=== PATIENT | male | born 1945 | race Caucasian/White ===

== ENCOUNTER → 2016-04-03 | Outpatient (CLI) | payer MEDICARE | LOC: RAD 07:26 | PROVIDERS: ATTEND Internal Medicine | DX: M47.12 Other spondylosis with myelopathy, cervical region (principal); M50.31 Other cervical disc degeneration, high cervical region | CPT/HCPCS: 72141 ==

== ENCOUNTER → 2016-05-21 | Outpatient (CLI) | payer MEDICARE ==
[~2016-05-21] MED LIST: ALBU8.5H4 IH; AML2.5T PO; AMLO5TAB4 PO; ASPI81TA55 PO; BISO1TAB3 PO; BISOPROLOL; CEPH-507 PO; GLMP2T PO; LATA2.5D5 OP; LOSA100T3 PO; METF500T4 PO; MPR22TI TOP; SIMV20TA PO; TAMS0.4C2 PO; TEST100V3
[2016-05-21 11:49] VITALS: BP 126/85
--- NOTE | 2016-05-21 11:49 | Urgent Care T Sheet Gen (E) ---
Intake General Temperature (Fahrenheit): 98.6 Pulse: 75 Blood Pressure Systolic: 126 Blood Pressure Diastolic: 85 Respirations: 18 SPO2: 97 Description of Symptoms patient presents with a probable infection to the L chin/lower lip area. Started as an isolated red bump approx 3 days ago. Has spread over time. Now notes several red, raised bumps along the area. Slight pain due to swelling. L lower lip is starting to enlarge. No numbness, burning or itching to the area. No drainage. No meds. Patient doesn't recall being bitten by anything. States shaving the past few days has really irritated the area. Sees Dr Dawson on Thursday for [facility] f/u. History of Present Illness Allergies: Coded Allergies: No Known Drug Allergies (Unverified , 09/13/11) Home Meds Reported Medications Tamsulosin HCl 0.4 Mg Cap.er.24h0.4 Mg PO DAILY 10/10/14 Bisoprolol Fumarate/HCTZ (Bisoprolol-HCTZ 5-6.25 mg)1 Each Tablet1 Each PO DAILY 10/10/14 Aspirin (Aspir-Low)81 Mg Tablet.dr81 Mg PO DAILY 10/10/14 Amlodipine Besylate 2.5 Mg Tablet2.5 Mg PO DAILY 10/10/14 Albuterol Sulfate (Albuterol Sulfate Hfa)8.5 Gm Hfa.aer.ad90 Mcg IH Q4H 10/10/14 Simvastatin (Zocor)20 Mg Scyuym80 Mg PO DAILY 09/13/11 Losartan Potassium (Cozaar)100 Mg Nvdosg045 Mg PO DAILY 09/13/11 Glimepiride (Amaryl)2 Mg Tab2 Mg PO DAILY 09/13/11 Metformin HCl 500 Mg Tablet1,000 Mg PO DAILY 09/13/11 Respiratory Constitutional Symptoms: No syptoms reported EENTM: No symptoms reported Respiratory: No symptoms reported Cardiovascular: No symptoms reported Skin: Lesions Rash All Other Systems Reviewed Remaining Systems: All other systems reviewed with negative findings Past Odqnwav-Nadejt-Kilysh Hx Surgeries/Hospitalizations Hospitalization/Surgery Hx: egd, colonoscopy, stef fundoplication Respiratory Respiratory History: None Cardiovascular Cardiovascular History: Hypertension, Hypercholesterolemia Neuro/Muscular Neuro/Muscular History: History of falls, Neuropathy, Other, see commnent Comment: balance problem knees and ankles week. Genitouinary Genitourinary History: None Gastrointestinal GI/Endocrine History: Other, see comment Comment: barretts esophagus, Diabetes Diabetes: NIDDM Oral med controlled Integumentary Integumentary History: None Comment: diabetic ulcers on feet but healed Cancer History of Cancer?: No Psychosocial Behavior Disorders: None Physical Exam Physical Exam General Appearance: WD/WN No apparent distress Eyes, Ears, Nose, Throat Ex: Other (mouth is normal. I see no lesions along the lower lip however there is some edema along the L side.) Skin Exam: Rash (the rash crosses midline of the face) Other (examination of the skin reveals several red, raised papules along the L chin and lower jaw. no drainage. no warmth or surrounding skin erythema. the only redness seen in the area are the papules. there is one papule in particular along the jaw line which is approx the size of a dime and fairly firm however doesn't feel fluid filled.) Neurologic/Psychiatric Exam: No sensory deficits Departure Urgent Care Impression Impression: Primary Impression: Skin infection Departure Disposition: HOME OR SELF-CARE Condition: Stable Referrals: JERONIMO DAWSON MD (PCP) Additional Instructions: Unsure the etiology of the rash/infection, however I am assuming it is some sort of staph infection. The rash however isn't draining and there isn't an area where I could garfield it and culture the content. Could be a spider bite however that is lower in my differential. I don't believe this is shingles as the rash crosses midline. I have started the patient on Keflex and Mupirocin ointment. Try and avoid shaving if possible to prevent spreading F/U with Dr Dawson as scheduled on Thursday Return as needed or if symptoms worsen or change before Thursday patient understands DC instructions. All questions were answered. Scripts Mupirocin (Mupirocin Ointment)22 Gm Oint...g.1 Gm TOP BID #1 TUBE Apply topically to affected area BID x 7 days Prov:JOSE MARIA LERNER 05/21/16 Cephalexin (Keflex)500 Mg [id number] Mg PO QID Infection #28 CAP Ref 0 Prov:JOSE MARIA LERNER 05/21/16 End of report . JOSE MARIA LERNER May 21, 2016 11:49
== END ==
LOC: MHUC 11:20
PROVIDERS: ATTEND Physician Assistant
DX: L08.89 Other specified local infections of the skin and subcutaneous tissue (principal)
CPT/HCPCS: 99212

== ENCOUNTER → 2016-06-16 | Outpatient (CLI) | payer MEDICARE ==
[2016-06-16 18:59] VITALS: BP 147/98
--- NOTE | 2016-06-16 18:59 | Urgent Care T Sheet Gen (E) ---
Intake General Temperature (Fahrenheit): 98 Pulse: 78 Blood Pressure Systolic: 147 Blood Pressure Diastolic: 98 Respirations: 20 SPO2: 96 Chief Complaint: UC Skin Condition Description of Symptoms This 70 y/o patient of Dr. Solomon comes in here today for me to recheck his toe he has some concerns about. Apparently he got a bit upset on 06-04 and kicked a sliding closet door and injured his second toe on his right foot. He ended up going to see his application packaging specialist Dr. Brooks in [facility] about it on 06-11-16. She ended up x-raying it per his report and he says he was told there was nothing broken. He had what sounds like a subungal hematoma because she did remove the toenail. She then started him on Cefadroxil and he is taking 500mg bid. Dr. Brooks wants to see him back for follow up on 06-24-16. He has been dressing the area as she instructed with cleaning it and applying neopsorin where his nail had rested. He is concerned because he has diabetes and his sensation is not all that good and he thought the toe should be looking better by now. He denies any fever. Source: Patient Exam Limitations: No limitations History of Present Illness Onset & Duration: Weeks Timing: Still present Severity: Mild Recent Trauma: No Similar Sympotms Previously: No Allergies: Coded Allergies: No Known Drug Allergies (Unverified , 09/13/11) Home Meds Active Scripts Mupirocin (Mupirocin Ointment)22 Gm Oint...g.1 Gm TOP BID #1 TUBE Apply topically to affected area BID x 7 days Prov:JOSE MARIA LERNER 05/21/16 Cephalexin (Keflex)500 Mg [id number] Mg PO QID Infection #28 CAP Ref 0 Prov:JOSE MARIA LERNER 05/21/16 Reported Medications Tamsulosin HCl 0.4 Mg Cap.er.24h0.4 Mg PO DAILY 10/10/14 Bisoprolol Fumarate/HCTZ (Bisoprolol-HCTZ 5-6.25 mg)1 Each Tablet1 Each PO DAILY 10/10/14 Aspirin (Aspir-Low)81 Mg Tablet.dr81 Mg PO DAILY 10/10/14 Amlodipine Besylate 2.5 Mg Tablet2.5 Mg PO DAILY 10/10/14 Albuterol Sulfate (Albuterol Sulfate Hfa)8.5 Gm Hfa.aer.ad90 Mcg IH Q4H 10/10/14 Simvastatin (Zocor)20 Mg Eksfdl80 Mg PO DAILY 09/13/11 Losartan Potassium (Cozaar)100 Mg Fthmtb012 Mg PO DAILY 09/13/11 Glimepiride (Amaryl)2 Mg Tab2 Mg PO DAILY 09/13/11 Metformin HCl 500 Mg Tablet1,000 Mg PO DAILY 09/13/11 Respiratory Constitutional Symptoms: No syptoms reported EENTM: No symptoms reported Respiratory: No symptoms reported Cardiovascular: No symptoms reported Gastrointestinal/Abdominal: No symptoms reported Genitourinary: No symptoms reported Musculoskeletal: No symptoms reported Skin: See HPI Other (Mild redness and swelling to the second toe right foot. ) Neurological: No symptoms reported Hematologic/Lymphatic: No symptoms reported Immunologic/Allergies: No symptoms reported All Other Systems Reviewed Remaining Systems: All other systems reviewed with negative findings Past Tkqbgkm-Dafrnk-Ixbawm Hx Surgeries/Hospitalizations Hospitalization/Surgery Hx: egd, colonoscopy, stef fundoplication Respiratory Respiratory History: None Cardiovascular Cardiovascular History: Hypertension, Hypercholesterolemia Neuro/Muscular Neuro/Muscular History: History of falls, Neuropathy, Other, see commnent Comment: balance problem knees and ankles week. Genitouinary Genitourinary History: None Gastrointestinal GI/Endocrine History: Other, see comment Comment: barretts esophagus, Diabetes Diabetes: NIDDM Oral med controlled Integumentary Integumentary History: None Comment: diabetic ulcers on feet but healed Cancer History of Cancer?: No Psychosocial Behavior Disorders: None Physical Exam Physical Exam General Appearance: WD/WN No apparent distress Skin Exam: Normal color Warm/dry/intact No rashes No embolic lesions Other ( The nail is absent from the second toe right foot. There is mild swelling to that same toe and a faint hue of pink is noted to the entire toe itself. It is not warm to touch.) Extremity Exam: Non-tender Full range of motion Normal capillary refill No pedal edema No calf tenderness Neurologic/Psychiatric Exam: Oriented times 4 CN's II-X nml No motor deficits No sensory deficits Mood/affect nml Departure Urgent Care Impression Chief Complaint: UC Skin Condition Impression: Primary Impression: Paronychia of second toe of right foot Departure Disposition: HOME OR SELF-CARE Condition: Stable Referrals: JERONIMO BORDEN MD (PCP) Additional Instructions: I have advised the patient to dispense with applying the neosporin because I am concerned it is causing more irritation. I have asked him to continue on with the antibiotic prescribed by Dr. Brooks and for him to keep his follow up there. I reassured him that this visit would come to Dr. Solomon for review. The patient is comfortable with the plan as outlined. End of report . NEGRITA LAMAS June 16, 2016 18:59
== END ==
LOC: MHUC 17:59
PROVIDERS: ATTEND Physician Assistant Medical
DX: L03.031 Cellulitis of right toe (principal)
CPT/HCPCS: 99213